=== PATIENT | female | born 1975 | race Caucasian/White ===

== ENCOUNTER 2019-09-29 17:52 | Observation (INO) | payer BC, SELFPAY ==
--- NOTE | ~2019-09-29 | XR_ITS ---
XR chest 1V portable 09/29/2019 18:17 Indication: Cough and shortness of breath. Right-sided chest pain. Procedure: AP portable chest Comparison: No prior studies for comparison. Findings: Patchy right perihilar and left basilar airspace disease, consistent with pneumonia. No ple ural effusion, edema or pneumothorax. Heart size is normal. Impression: 1: Patchy bilateral pneumonia. Reviewed, dictated and finalized at location A. TRICIAN'S ASSISTANT Impression: 1: Patchy bilateral pneumonia.
[2019-09-29 17:59] VITALS: BP 140/73; PULSE 119; RESP 21; TEMP 36.8; O2SAT 98
--- NOTE | 2019-09-29 18:06 | ECG_ITS ---
Measurements Intervals [place] Rate: 108 P: 4 DC: 133 QRS: 44 QRSD: 100 T: 6 QT: 339 QTc: 455 Interpretive Statements SINUS TACHYCARDIA MINIMAL Q WAVES- INFERIOR LEADS BORDERLINE ST-T WAVE ABNORMALITY- INFERIOR LEADS ABNORMAL ECG Electronically Signed On 09-30-2019 8:34:51 MECHANICAL INTEGRITY ENGINEER by Emeterio Child D.O.
--- NOTE | 2019-09-29 18:06 | ED.URI ---
HPI - URI/Sore Throat General Chief Complaint: Unspecified Stated Complaint: Sob Time Seen by Provider: 09/29/19 18:01 Source: patient Mode of arrival: ambulatory Limitations: no limitations History of Present Illness HPI Narrative: A 44 y/o female presents to the ED with c/o possible upper respiratory infection. Pt states that on 09/23/19 she started to have upper respiratory symptoms [place]. Last night the patient started to shiver and she noticed she had high blood pressure. Today the patient saw Dr. Harrison and she was tested for Influenza - which came back negative. At that appointment, Dr. Harrison advised the patient to be further evaluated at the ED. Pt reports slight productive cough, SOB, right sided ABD pain, rhinorrhea, and nausea, but denies vomiting. She is unsure if she had a fever. Pt adds that she is currently [address] Baez is her CRIMINALIST. MD elicited complaint: other (POssible upper respiratoy infection) Onset (ago): day(s) (6) Consistency: constant Associated symptoms: rhinorrhea, cough (Slight productive), shortness of breath, abdominal pain (Right sided), nausea and other (Shivering) Related Data Home Medications Medication Instructions Recorded Confirmed aspirin 81 mg tablet,delayed 81 mg PO DAILY 08/24/19 release cetirizine 10 mg tablet 10 mg PO DAILY 08/24/19 cyanocobalamin (vitamin B-12) 500 2,000 mcg PO DAILY each 08/24/19 mcg lozenges levothyroxine 200 mcg tablet 200 mcg PO DAILY 08/24/19 sertraline 50 mg tablet 50 mg PO DAILY 08/24/19 Allergies Allergy/AdvReac Type Severity Reaction Status Date / Time Cephalosporins Allergy Intermediate RASH Verified 09/29/19 16:09 Penicillins Allergy Mild Rash Verified 09/29/19 16:09 Review of Systems Review of Systems: All systems reviewed & are unremarkable except as noted in HPI and below Constitutional: Constitutional: Reports other (Shivering) ENT: Reports nasal discharge Respiratory: Respiratory: Reports cough (Slight productive) and Reports dyspnea Gastrointestinal: Gastrointestinal: Reports abdominal pain (Right sided), Reports nausea and Denies vomiting PMFSH Past Medical History Medical History (Updated 09/29/19 @ 20:01 by Renny Bhatti DO) Arthritis Bronchitis Chronic back pain Finger fracture GERD (gastroesophageal reflux disease) Head ache History of blood transfusion Hypothyroid IUP (intrauterine ), incidental Nose fracture Respiratory distress Spastic colon Tachycardia Surgical History Surgical History (Updated 09/29/19 @ 18:20 by Blessing Orozco) H/O local excision of skin lesion History of section History of tonsillectomy Social History Social History (Updated 09/29/19 @ 18:21 by Blessing Orozco) Smoking packs per day: 0.5 Smoking cigarettes per day: 10.0 Years smoked: 9 Smoking pack-years: 4.50 Smoking status: Former smoker Tobacco type: cigarettes Second hand tobacco smoke exposure: Yes Smoking end date: 08/09/10 Exam Narrative: Exam Narrative: APPEARANCE: No acute distress, nontoxic, resting in bed EYES: EOMI HEENT: Normocephalic, atraumatic, bilateral turbinates boggy, erythema no exudate posterior pharynx RESPIRATORY: No respiratory distress Clear to auscultation bilaterally with no rhonchi wheezing or rales. CARDIOVASCULAR: Regular rate and rhythm without murmurs rubs or gallops. ABDOMINAL: Soft, nontender, nondistended, no rebound or guarding MUSCULOSKELETAl: Moves all extremities. No clubbing, cyanosis or edema. NEURO: Awake and alert. Following commands, speech normal, no focal deficits SKIN:: Warm, dry. No rashes lesions or abrasions PSYCHIATRIC: Normal affect/mood, Course Course Emergency Course: Patient states she has a allergic reaction to cephalosporins. Had a rash as a child. Reviewed on up-to-date and will use clindamycin as substitution with continued azithromycin Discussed with patient and fam
[2019-09-29 18:45] LABS: Hematocrit 35.5 % (37.0-47.0); Hemoglobin 11.7 g/dL (12.0-15.0); Mean Corpuscular Hemoglobin 28.2 pg (26-34); Mean Corpuscular Volume 85.5 fl (80-100); Platelet Count Result 211 k/mm3 (150-375); Red Blood Count 4.15 M/mm3 (4.2-5.4); Red Cell Distribution Width 13.5 % (11.5-14.5); White Blood Count 24.7 K/mm3 (4.5-10.0)
[2019-09-29 18:54] LABS: Band Neutrophils Percent 2 % (0-6); Eosinophils Absolute Manual 0.24 K/mm3 (0.02-0.5); Eosinophils Percent Manual 1 % (0-4); Lymphocytes Absolute Manual 1.72 K/mm3 (1.1-4.5); Monocytes Absolute Manual 2.22 K/mm3 (0.1-0.90); Monocytes Percent Manual 9 % (3-9); Neutrophils Percent Manual 81 % (46-73); Total Cells Counted 100
[2019-09-29 18:55] LABS: Platelet Estimate Adequate (Adequate)
[2019-09-29 18:59] LABS: Lactic Acid Reflex 1.3 mmol/L (0.7-2.1)
[2019-09-29 19:00] LABS: Alanine Aminotransferase 15 U/L (4-35); Albumin Level 3.9 g/dL (3.5-5.1); Alkaline Phosphatase 93 U/L (38-126); Aspartate Amino Transferase 20 U/L (14-36); Bilirubin,Total 0.9 mg/dL (0.2-1.3); Blood Urea Nitrogen 3 mg/dL (7-17); Calcium 9.3 mg/dL (8.4-10.2); Carbon Dioxide 19 mmol/L (22-30); Chloride 99 mmol/L (98-107); Estimated CRCL calculation 140 ml/min; Estimated Glomerular Filt Rate > 60; Glucose 104 mg/dL (65-105); Potassium 3.4 mmol/L (3.4-5.0); Sodium 134 mmol/L (137-145)
[2019-09-29] MEDS: LACTATED RINGERS 1,000 ML 999 ML IV CONT (19:00)
[2019-09-29 19:13] LABS: Add Urine Microscopic? NO; Appearance Urine Clear (Clear); Bilirubin Urine Negative (Negative); Blood Urine Negative (Negative); Color Urine Yellow (Yellow); Glucose Urine UA Negative (Negative); Ketones Urine Negative (Negative); Leukocyte Esterase Ur Negative LEU/UL (Negative); Nitrate Urine Negative (Negative); Protein Urine Negative (Negative); Specific Grav Ur 1.005 (1.001-1.035); Urobilinogen Urine Negative mg/dL (<2.0)
[2019-09-29 19:16] VITALS: BP 124/59; PULSE 106; RESP 16; O2SAT 100
[2019-09-29] MEDS: CLINDAMYCIN 600 MG/NS 50 ML 600 MG/50 ML PIGGYBACK 100 MG IVPB (20:02)
[2019-09-29 20:03] VITALS: TEMP 36.4
[2019-09-29 20:15] VITALS: BP 116/66; PULSE 105; RESP 21; TEMP 37; O2SAT 100
--- NOTE | 2019-09-29 21:02 | ADMGEN ---
This patient, Anh Zurita, was admitted to 2 Medical Room 241-01@ 2029. Patient/family oriented to hospital policies and general routines including ID bracelet, bed and alarms, visiting hours, pain management, procedures, bathroom and other care routines, personal items, smoking policy, room service/diet, and visiting hours. Valuables list has been completed. Information on how to activate the Rapid Response Team has been discussed. Patient/Family are encouraged to report perceived risks to care and to ask questions if they do not understand what they are told or what they should do.
[2019-09-29 21:42] LABS: Glucose Point of Care 115 (65-105)
[2019-09-29 22:00] VITALS: BP 119/58; PULSE 96; RESP 16; TEMP 36.1; O2SAT 96; BMI 38.5
[2019-09-29] MEDS: LACTATED RINGERS 1,000 ML 100 ML IV CONT (23:27)
[2019-09-30] MEDS: CLINDAMYCIN 600 MG/NS 50 ML 600 MG/50 ML PIGGYBACK 100 MG IVPB ×2 (03:15→12:55)
--- NOTE | 2019-09-30 03:40 | PM.IMCN ---
Assessment and Plan Assessment and plan (1) Community acquired pneumonia: Code(s): J18.9 - Pneumonia, unspecified organism Status: Acute Assessment and Plan: She has been started on clindamycin and azithromycin which could be switched to oral formulation on discharge. Patient is responding well to antibiotic therapy and her leukocytosis has improved significantly. She does not have an oxygen requirement is not in any respiratory distress. On discharge the patient should complete a 7 day course of antibiotic therapy. (2) : Code(s): Z34.90 - Encounter for supervision of normal , unspecified, unspecified trimester Status: Acute Assessment and Plan: Management per primary service. (3) Gestational diabetes: Code(s): O24.419 - Gestational diabetes mellitus in , unspecified control Status: Acute Assessment and Plan: Management per primary service. HPI Data of Consult Consult date: 09/30/19 Requesting Physician: Jostin Bautista MD Primary Care Provider: Kalin Harrison MD Consult Narrative Narrative: Date and time of patient contact: 09/30/2019 at 3:40 a.m. Anh Zurita is a 44 year old female with a current medical history of allergic rhinitis, gestational diabetes with the current 30 week who presented to the ER with malaise, shortness of breath, cough and chills. The patient was seen at primary care physician's office and had a flu swab which was negative. She was directed to come to the ER for further evaluation where she had a chest x-ray which demonstrated patchy bilateral pneumonia. She was admitted in the setting. Hospitalist service has been consulted for management of pneumonia. The patient reports that she had traveled to [place] last week (09/23/2019). At the time she had had some fatigue, malaise and mental fog. Those symptoms improved when she left the [facility]. However on night she began having intractable chills and generally felt miserable all night. she has started having a minimal productive cough. She noticed on the day of presentation to the hospital that she had had some blood streaked sputum. She had been having some right-sided abdominal pain that has since resolved. She has been having some rhinorrhea with some mild postnasal drip with a mild sore throat. She was having some nausea which has since resolved. She has not been having any vomiting. Review of Systems Review of Systems: Narrative: Except as documented in the HPI, all other systems were reviewed and are negative. [facility] Past Medical History Medical History (Updated 09/30/19 @ 07:04 by Yashira Gaspar DO) Arthritis Bronchitis Chronic back pain Finger fracture GERD (gastroesophageal reflux disease) Gestational diabetes Head ache History of blood transfusion Hypothyroid IUP (intrauterine ), incidental Nose fracture Respiratory distress Spastic colon Tachycardia Surgical History Surgical History (Updated 09/29/19 @ 18:20 by Blessing Orozco) H/O local excision of skin lesion History of section History of tonsillectomy Family History Family History (Updated 09/29/19 @ 21:19 by Michelle Leal, HARIS) Father Diabetes mellitus Mother Brain tumor Social History Social History (Updated 09/30/19 @ 06:50 by Yashira Gaspar DO) Social History: Primary care physician: Dr. Harrison Smoking packs per day: 0.5 Smoking cigarettes per day: 10.0 Years smoked: 9 Smoking pack-years: 4.50 Smoking status: Former smoker Tobacco type: cigarettes Second hand tobacco smoke exposure: Yes Smoking end date: 08/09/10 Alcohol intake: never Alcohol use details: Prior to the patient had drank alcohol in moderation in on occasion. Substance use: never Substance use type: does not use Living arrangements: with family Additional living arrangements comm
[2019-09-30 05:57] LABS: Basophils Percent Auto 0.2 % (0.2-1.2); Eosinophils Absolute Auto 0.1 K/mm3 (0-0.3); Eosinophils Percent Auto 0.5 % (0-4.4); Hematocrit 31.4 % (37.0-47.0); Hemoglobin 10.4 g/dL (12.0-15.0); Immature Granulocyte Absolute 0.13 K/mm3 (0.00-0.031); Immature Granulocyte Percent A 0.8 % (0-0.5); Lymphocytes Absolute Auto 2.09 K/mm3 (0.9-3.2); Lymphocytes Percent Auto 12.7 % (18.3-44.2); Mean Corpuscular HGB Conc 33.1 g/dl (32-36); Mean Corpuscular Hemoglobin 28.7 pg (26-34); Mean Corpuscular Volume 86.5 fl (80-100); Monocytes Absolute Auto 1.2 K/mm3 (0.1-0.6); Monocytes Percent Auto 7.1 % (2.6-8.5); Neutrophils Percent Auto 78.7 % (45.5-73.1); Platelet Count Result 174 k/mm3 (150-375); Red Blood Count 3.63 M/mm3 (4.2-5.4); Red Cell Distribution Width 13.6 % (11.5-14.5); White Blood Count 16.5 K/mm3 (4.5-10.0)
[2019-09-30 06:00] VITALS: BP 114/67; PULSE 87; RESP 18; TEMP 36.2; O2SAT 98
[2019-09-30 06:10] LABS: Blood Urea Nitrogen 5 mg/dL (7-17); Calcium 8.3 mg/dL (8.4-10.2); Carbon Dioxide 21 mmol/L (22-30); Chloride 104 mmol/L (98-107); Estimated CRCL calculation 140 ml/min; Estimated Glomerular Filt Rate > 60; Glucose 105 mg/dL (65-105); Potassium 3.4 mmol/L (3.4-5.0); Sodium 134 mmol/L (137-145)
--- NOTE | 2019-09-30 07:44 | PM.SD ---
Same Day Admit/Disch: HPI History of Present Illness Chief complaint: Community-acquired pneumonia, pregnacy Narrative: Anh Zurita is a 44 year old female H&P: Anh Zurita is a 44 year old female with a current medical history of allergic rhinitis, gestational diabetes with the current 30 week who presented to the ER with malaise, shortness of breath, cough and chills. The patient was seen at primary care physician's office and had a flu swab which was negative. She was directed to come to the ER for further evaluation where she had a chest x-ray which demonstrated patchy bilateral pneumonia. She was admitted in the setting. Hospitalist service has been consulted for management of pneumonia. The patient reports that she had traveled to [place] last week (09/23/2019). At the time she had had some fatigue, malaise and mental fog. Those symptoms improved when she left the elevated elevation. However on night she began having intractable chills and generally felt miserable all night. she has started having a minimal productive cough. She noticed on the day of presentation to the hospital that she had had some blood streaked sputum. She had been having some right-sided abdominal pain that has since resolved. She has been having some rhinorrhea with some mild postnasal drip with a mild sore throat. She was having some nausea which has since resolved. She has not been having any vomiting. Patient will discharge 09/30/19 she will discharge with a 7 day clindamycin and azithromycin and with OB/ humanities division chair. Patient able to tolerate all meals , slept well and ambulate at baseline. Patient denies SOB, CP, palpitation, extremity numbness, lightheadness, dizziness, constipation, diarrhea, or chills or fever. Patient agree that they are ready for discharge and discharge plan. PENDING SALE TO [facility] Past Medical History Medical History (Updated 09/30/19 @ 07:04 by Yashira Gaspar DO) Arthritis Bronchitis Chronic back pain Finger fracture GERD (gastroesophageal reflux disease) Gestational diabetes Head ache History of blood transfusion Hypothyroid IUP (intrauterine ), incidental Nose fracture Respiratory distress Spastic colon Tachycardia Surgical History Surgical History (Updated 09/29/19 @ 18:20 by Blessing Orozco) H/O local excision of skin lesion History of section History of tonsillectomy Family History Family History (Updated 09/29/19 @ 21:19 by Michelle Leal RN) Father Diabetes mellitus Mother Brain tumor Social History Social History (Updated 09/30/19 @ 06:50 by Yashira Gaspar DO) Social History: Primary care physician: Dr. Harrison Smoking packs per day: 0.5 Smoking cigarettes per day: 10.0 Years smoked: 9 Smoking pack-years: 4.50 Smoking status: Former smoker Tobacco type: cigarettes Second hand tobacco smoke exposure: Yes Smoking end date: 08/09/10 Alcohol intake: never Alcohol use details: Prior to the patient had drank alcohol in moderation in on occasion. Substance use: never Substance use type: does not use Living arrangements: with family Additional living arrangements comments: The patient is . She has 2 step children and 2 biologic children. 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 Gender identity (if verbalized by the patient): Female Spiritual care concerns: No Agree to blood products: Yes Same Day Admit/Disch: Med Pre-admit Medications Home Medications Medication Instructions Recorded Confirmed Type aspirin 81 mg tablet,delayed 81 mg PO DAILY 08/24/19 09/29/19 History release cetirizine 10 mg tablet 10 mg PO QPM 08/24/19 09/29/19 History cyanocobalamin (vitamin B-12) 500 2,000 mcg PO DAILY each 08/24/19 09/29/19 History mcg lozenges levothyroxine 200 mcg tablet 200 mc
--- NOTE | 2019-09-30 10:22 | PM.IMHP ---
H&P: HPI History of Present Illness Chief complaint: Community-acquired pneumonia, pregnacy Narrative: Anh Zurita is a 44 year old female @ 30 weeks complicated by AMA, GERD, Hypothyroid and gestational Diabetes. care is with Dr. Baez. She presented to medicine doctor for coughing and chest pain yesterday sent to ER for evaluation. Patient reports sxs of fatigue and cough and chills began last week after traveling. Patient had a negative flu swab and CXR showed bilateral pneumonia. [facility] Past Medical History Medical History (Updated 09/30/19 @ 07:04 by Yashira Gaspar DO) Arthritis Bronchitis Chronic back pain Finger fracture GERD (gastroesophageal reflux disease) Gestational diabetes Head ache History of blood transfusion Hypothyroid IUP (intrauterine ), incidental Nose fracture Respiratory distress Spastic colon Tachycardia Surgical History Surgical History (Updated 09/29/19 @ 18:20 by Blessing Orozco) H/O local excision of skin lesion History of section History of tonsillectomy Family History Family History (Updated 09/29/19 @ 21:19 by Michelle Leal RN) Father Diabetes mellitus Mother Brain tumor Social History Social History (Updated 09/30/19 @ 06:50 by Yashira Gaspar DO) Social History: Primary care physician: Dr. Harrison Smoking packs per day: 0.5 Smoking cigarettes per day: 10.0 Years smoked: 9 Smoking pack-years: 4.50 Smoking status: Former smoker Tobacco type: cigarettes Second hand tobacco smoke exposure: Yes Smoking end date: 08/09/10 Alcohol intake: never Alcohol use details: Prior to the patient had drank alcohol in moderation in on occasion. Substance use: never Substance use type: does not use Living arrangements: with family Additional living arrangements comments: The patient is . She has 2 step children and 2 biologic children. 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 Gender identity (if verbalized by the patient): Female Spiritual care concerns: No Agree to blood products: Yes Meds Home Medications and Allergies Home Medications Medication Instructions Recorded Confirmed Type aspirin 81 mg tablet,delayed 81 mg PO DAILY 08/24/19 09/29/19 History release cetirizine 10 mg tablet 10 mg PO QPM 08/24/19 09/29/19 History cyanocobalamin (vitamin B-12) 500 2,000 mcg PO DAILY each 08/24/19 09/29/19 History mcg lozenges levothyroxine 200 mcg tablet 200 mcg PO DAILY 08/24/19 09/29/19 History sertraline 50 mg tablet 50 mg PO QPM 08/24/19 09/29/19 History insulin NPH isoph U-100 human 6 unit SUBCUT QPM 09/29/19 09/29/19 History [Humulin N NPH U-100 Insulin] Allergies Allergy/AdvReac Type Severity Reaction Status Date / Time Cephalosporins Allergy Intermediate RASH Verified 09/29/19 16:09 Penicillins Allergy Mild Rash Verified 09/29/19 16:09 Vital Signs Vital Signs - 24 hr 09/29/19 17:59 09/29/19 19:16 09/29/19 20:03 Temperature 36.8 C 36.4 C L Pulse Rate 119 H 106 H Respiratory Rate 21 H 16 Blood Pressure 140/73 124/59 L Pulse Oximetry 98 100 09/29/19 20:15 09/29/19 22:00 09/30/19 06:00 Temperature 37.0 C 36.1 C L 36.2 C L Pulse Rate 105 H 96 87 Respiratory Rate 21 H 16 18 Blood Pressure 116/66 119/58 L 114/67 Pulse Oximetry 100 96 98 Exam GI: Other: soft gravid nontender H&P: Results Labs Labs: Short CBC 09/29/19 09/30/19 Range/Units 18:34 05:37 WBC 24.7 H 16.5 H (4.5-10.0) K/mm3 Hgb 11.7 L 10.4 L (12.0-15.0) g/dL Hct 35.5 L 31.4 L (37.0-47.0) % Plt Count 211 174 (150-375) k/mm3 BMP 09/29/19 09/30/19 18:34 05:37 Sodium 134 L 134 L Potassium 3.4 3.4 Chloride 99 104 Carbon Dioxide 19 L 21 L BUN 3 L 5 L Creatinine 0.50 L 0.50 L Glucose 104 105 C
[2019-09-30 10:48] VITALS: BP 114/63; PULSE 87
== END 2019-09-30 14:20 | disposition home or self-care (01) ==
LOC: ANHED 18:25 → ANH2MED 20:01
PROVIDERS: Admitting Provider Obstetrics & Gynecology; Emergency Provider Emergency Medicine; PCP Family Medicine; Visit Provider Obstetrics & Gynecology
DX: O99.513 Diseases of the respiratory system complicating pregnancy, third trimester (principal); J18.9 Pneumonia, unspecified organism; J30.9 Allergic rhinitis, unspecified; O24.419 Gestational diabetes mellitus in pregnancy, unspecified control; O99.613 Diseases of the digestive system complicating pregnancy, third trimester; K21.9 Gastro-esophageal reflux disease without esophagitis; O99.283 Endocrine, nutritional and metabolic diseases complicating pregnancy, third trimester; E03.9 Hypothyroidism, unspecified; Z3A.30 30 weeks gestation of pregnancy; Z87.891 Personal history of nicotine dependence
CPT/HCPCS: 36415; 59025; 71045; 80048; 80053; 81003; 83605; 85025; 87040; 87804; 93005; 96361; 96365; 96367; 99285; G0378; J0131; J0456; J7120

== ENCOUNTER → 2019-10-26 13:26 | Outpatient (CLI) | payer BC, SELFPAY ==
--- NOTE | ~2019-10-26 | US_ITS ---
EXAMINATION: US OB follow up DATE: 10/26/2019 13:48 INDICATION: Large for gestational age during third trimester TECHNIQUE: Real-time ultrasound of the pelvis was performed. The interpreting radiologist was not pre sent for the study. COMPARISON: None. FINDINGS: There is a single living fetus in vertex presentation. The placenta is posterior. car diac activity and movement are noted. heart rate is 124 beats per minute (bpm). The amnio tic fluid index is 18.1 cm which is normal. The following biometric data were obtained: Biparietal diameter (BPD): 8.7 cm; head circumference (HC): 32.3 cm; abdominal circumference (AC): 32 .8 cm; femur length (FL): 6.8 cm. These measurements are concordant. Estimated weight is 2868 g +/- 430 g, which correlates with the 92nd percentile when 12/05/2019 is used as estimated date of delivery. As single measurements, these parameters are each equal to the following estimated gestational ages w ith ranges of +/- 2 standard deviations: BPD: 35 weeks 2 days ( 32 weeks 1 days - 38 weeks 2 days). HC: 36 weeks 4 days ( 34 weeks 0 days - 39 weeks 2 days). AC: 36 weeks 5 days ( 33 weeks 5 days - 39 weeks 5 days). FL: 35 weeks 2 days ( 32 weeks 2 days - 38 weeks 2 days). estimated gestational age based solely on measurements from this exam is 36 weeks 0 days +/- 2 weeks 4 days. IMPRESSION: 1. Single living fetus in vertex presentation. 2. Normal amniotic fluid index. 3. Estimated weight is 2868 g +/- 430 g, which correlates with the 92nd percentile when 12/05/19 20 is used as estimated date of delivery. Reviewed, dictated and finalized at location A. IMPRESSION: 1. Single living fetus in vertex presentation. 2. Normal amniotic fluid index. 3. Estimated weight is 2868 g +/- 430 g, which correlates with the 92nd p ercentile when 12/05/2019 is used as estimated date of delivery.
== END ==
PROVIDERS: Visit Provider Obstetrics & Gynecology
DX: O24.414 Gestational diabetes mellitus in pregnancy, insulin controlled (principal)
CPT/HCPCS: 76816

== ENCOUNTER 2019-11-17 09:02 | Outpatient (RCR) | payer BC, SELFPAY ==
[2019-11-17 09:36] VITALS: BP 132/81; PULSE 85
== END 2019-11-28 08:32 | disposition home or self-care (01) ==
LOC: ANHOBOP 09:02
PROVIDERS: Visit Provider Obstetrics & Gynecology Gynecology
DX: O09.523 Supervision of elderly multigravida, third trimester (principal); Z3A.37 37 weeks gestation of pregnancy
CPT/HCPCS: 59025

== ENCOUNTER 2019-11-27 10:56 | Outpatient (CLI) | payer BC, SELFPAY ==
[2019-11-27 11:16] LABS: Hematocrit 35.7 % (37.0-47.0); Hemoglobin 11.5 g/dL (12.0-15.0); Mean Corpuscular HGB Conc 32.2 g/dl (32-36); Mean Corpuscular Hemoglobin 27.6 pg (26-34); Mean Corpuscular Volume 85.6 fl (80-100); Mean Platelet Volume 10.4 fl (7.4-10.4); Platelet Count Result 180 k/mm3 (150-375); Red Blood Count 4.17 M/mm3 (4.2-5.4); Red Cell Distribution Width 14.6 % (11.5-14.5); White Blood Count 7.7 K/mm3 (4.5-10.0)
[2019-11-28 10:10] LABS: Rapid Plasma Reagin Non-Reactive (NonReactive)
== END 2019-11-27 10:57 | disposition home or self-care (01) ==
PROVIDERS: PCP Family Medicine; Visit Provider Obstetrics & Gynecology Gynecology
DX: Z01.818 Encounter for other preprocedural examination (principal)
CPT/HCPCS: 36415; 85027; 86592; 86900; 86901

== ENCOUNTER 2019-11-28 05:40 | Inpatient (IN) | payer BC, SELFPAY ==
[2019-11-28] VITALS (56 sets, daily range): BP systolic 93–155; BP diastolic 44–96; PULSE 60–101; RESP 12–20; TEMP 36.2–37.4; O2SAT 96–100; BMI 42.2
--- NOTE | 2019-11-28 05:55 | LDADM ---
This patient, Anh Zurita, was admitted to Labor/Delivery/Recovery 120 on 11/28/19 at 05:40. Plans for labor, pain management and were discussed with patient. Patient/family oriented to hospital policies and general routines including ID bracelet, bed and alarms, visiting hours, pain management, procedures, bathroom and other care routines, personal items, smoking policy, room service/diet and guest tray routines, security routines, and visiting hours. Patient/Family are encouraged to report perceived risks to care and to ask questions if they do not understand what they are told or what they should do. See OBIX for further documentation.
[2019-11-28] MEDS: LACTATED RINGERS 1,000 ML 125 ML IV CONT ×2 (06:25→07:07)
--- NOTE | 2019-11-28 06:43 | WPDANESEPPF ---
Anes - Initial Pre Proc Eval Procedure: Operation Date: 11/28/19 07:30 Proposed Procedures p Repeat Section - Mckenna Baez MD Date/Time: 11/28/19 06:43 Surgeon: Mckenna Baez MD Pre Op Diagnosis: History of Previous Patient Data Age: 44 Gender: F Height: 5 ft 4 in Weight: 111.5 kg Last Vital Signs Pulse 85 11/28/19 06:31 BP 130/76 11/28/19 06:31 Allergies Allergy/AdvReac Type Severity Reaction Status Date / Time Cephalosporins Allergy Intermediate RASH Verified 09/29/19 16:09 Penicillins Allergy Mild Rash Verified 09/29/19 16:09 Home Medications Medication Instructions Recorded Confirmed Type aspirin 81 mg tablet,delayed 81 mg PO DAILY 08/24/19 11/28/19 History release cetirizine 10 mg tablet 10 mg PO QPM 08/24/19 11/28/19 History cyanocobalamin (vitamin B-12) 500 2,000 mcg PO DAILY each 08/24/19 11/28/19 History mcg lozenges sertraline 50 mg tablet 50 mg PO QPM 08/24/19 11/28/19 History Humulin N NPH U-100 Insulin 8 unit SUBCUT QPM 09/29/19 11/28/19 History levothyroxine 200 mcg tablet 200 mcg PO DAILY #90 tablet 10/03/19 11/28/19 Rx Patient hx anesthesia problems: none Family hx anesthesia problems: none PMFSH Past Medical History Medical History Arthritis Bronchitis Chronic back pain Finger fracture GERD (gastroesophageal reflux disease) Gestational diabetes Head ache History of blood transfusion Hypothyroid IUP (intrauterine ), incidental Nose fracture Respiratory distress Spastic colon Tachycardia Surgical History Surgical History H/O local excision of skin lesion History of section History of tonsillectomy Family History Family History Father Diabetes mellitus Mother Brain tumor Social History Social History Social History: Primary care physician: Dr. Harrison Smoking packs per day: 0.5 Smoking cigarettes per day: 10.0 Years smoked: 9 Smoking pack-years: 4.50 Smoking status: Former smoker Tobacco type: cigarettes Second hand tobacco smoke exposure: No Smoking end date: 08/09/10 Alcohol intake: never Substance use: never Substance use type: does not use Additional living arrangements comments: The patient is . She has 2 step children and 2 biologic children. 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 Gender identity (if verbalized by the patient): Female Spiritual care concerns: No Agree to blood products: Yes Anes - Eval Final PreProcedure Day of Procedure 11/28/19 06:43 Patient weight: morbidly obese Heart: regular rate and rhythm Lungs: clear to auscultation Airway: Mallampati scale class 1 Neurological: alert and oriented Last oral intake: >/= 8 hours ASA classification: III Emergent: no Anesthetic plan: proceed Anesthesia type and monitoring: regional spinal and standard monitoring Informed Consent: The patient's anesthetic plan and its attendant risks and benefits were discussed with the patient/family/POA. Questions were solicited and answers provided to the satisfaction of the patient/family/POA.
[2019-11-28] MEDS: GENTAMICIN SULFATE INJ 385 MG in DEXTROSE 5% 100 ML 109.6 MG IVPB (06:46)
[2019-11-28 06:56] LABS: Glucose Point of Care 81 (65-105)
[2019-11-28] MEDS: CLINDAMYCIN 900 MG/NS 50 ML 900 MG/50 ML PIGGYBACK 50 MG IVPB (07:08)
--- NOTE | 2019-11-28 07:12 | PM.IMHP ---
H&P: HPI History of Present Illness Chief complaint: History of Previous Narrative: Anh Zurita is a 44 year old female A1 here at 39wks for repeat csection. Patient complicated by GDMA2 that has been well controlled. Patient had level 2 u/s for AMA that showed normal anatomy including ECHO. labs: O+; HBSAg -; HIV-; RPR -; GBS -. Review of Systems Constitutional: Constitutional: Reports no additional constitutional complaints Cardiovascular: Cardiovascular: Reports no additional cardiovascular complaints Respiratory: Respiratory: Reports no additional respiratory complaints Gastrointestinal: Gastrointestinal: Reports nausea Genitourinary: Genitourinary: Reports pelvic pain and Reports vaginal discharge Psychiatric: Psychiatric: Reports no additional psychiatric complaints PMFSH Past Medical History Medical History (Updated 11/28/19 @ 07:16 by Mckenna Baez MD) Arthritis Bronchitis Chronic back pain Finger fracture GERD (gastroesophageal reflux disease) Gestational diabetes Head ache History of blood transfusion Hypothyroid IUP (intrauterine ), incidental Nose fracture Respiratory distress Spastic colon Tachycardia Surgical History Surgical History (Updated 11/28/19 @ 07:17 by Mckenna Baez MD) H/O local excision of skin lesion History of section History of tonsillectomy Previous delivery, antepartum x 2 S/P laparoscopic cholecystectomy Family History Family History Father Diabetes mellitus Mother Brain tumor Social History Social History Social History: Primary care physician: Dr. Harrison Smoking packs per day: 0.5 Smoking cigarettes per day: 10.0 Years smoked: 9 Smoking pack-years: 4.50 Smoking status: Former smoker Tobacco type: cigarettes Second hand tobacco smoke exposure: No Smoking end date: 08/09/10 Alcohol intake: never Substance use: never Substance use type: does not use Additional living arrangements comments: The patient is . She has 2 step children and 2 biologic children. 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 Gender identity (if verbalized by the patient): Female Spiritual care concerns: No Agree to blood products: Yes Meds Home Medications and Allergies Home Medications Medication Instructions Recorded Confirmed Type aspirin 81 mg tablet,delayed 81 mg PO DAILY 08/24/19 11/28/19 History release cetirizine 10 mg tablet 10 mg PO QPM 08/24/19 11/28/19 History cyanocobalamin (vitamin B-12) 500 2,000 mcg PO DAILY each 08/24/19 11/28/19 History mcg lozenges sertraline 50 mg tablet 50 mg PO QPM 08/24/19 11/28/19 History Humulin N NPH U-100 Insulin 8 unit SUBCUT QPM 09/29/19 11/28/19 History levothyroxine 200 mcg tablet 200 mcg PO DAILY #90 tablet 10/03/19 11/28/19 Rx Allergies Allergy/AdvReac Type Severity Reaction Status Date / Time Cephalosporins Allergy Intermediate RASH Verified 09/29/19 16:09 Penicillins Allergy Mild Rash Verified 09/29/19 16:09 Vital Signs Vital Signs - 24 hr 11/28/19 06:21 11/28/19 06:31 Pulse Rate 82 85 Blood Pressure 139/83 130/76 Exam Const: General: no acute distress Resp: Auscultation: clear to auscultation bilaterally Cardio: Rate: regular rate Rhythm: regular rhythm GI: GI Palp: Yes Soft to palpation : Other: fundal height 45 cm Assessment and Plan Assessment and plan (1) Previous delivery, antepartum: Code(s): O34.219 - Maternal care for unspecified type scar from previous delivery Status: Acute Assessment and Plan: Proceed with repeat LTCS (2) 39 weeks gestation of : Code(s): Z3A.39 - 39 weeks gestation of S
--- NOTE | 2019-11-28 08:14 | PM.OP ---
Procedure Note - Brief Procedure Note - Brief Date of procedure: 11/28/19 Pre-op diagnosis: History of Previous GDMA2 IUP 39 wks Post-op diagnosis: same Procedure performed: Repeat LTCS Anesthesia: spinal Surgeon: Mckenna Baez MD Estimated blood loss (mL): 325 Drains: Yes (patricia) Packing: No Pathology: none sent Complications: No immediate complications Condition: stable Disposition: floor Findings: female infant weighing 9#12oz with 8/9 scores normal appearing tubes, ovaries, and uterus
--- NOTE | 2019-11-28 08:15 | PM.OBDSVD ---
DS: Diagnosis Admitting Diagnosis Admitting Diagnosis: Maternal care for unspecified type scar from previous delivery Discharge Diagnosis (1) delivery delivered: Code(s): O82 - Encounter for delivery without indication Status: Acute (2) Previous delivery, antepartum: Code(s): O34.219 - Maternal care for unspecified type scar from previous delivery Status: Acute (3) 39 weeks gestation of : Code(s): Z3A.39 - 39 weeks gestation of Status: Acute (4) GDM, class A2: Code(s): O24.419 - Gestational diabetes mellitus in , unspecified control Status: Acute OB - DS: Summary OB Procedures : NST and Ultrasound OB Procedures Intrapartum: low cervical, transverse OB Procedures: : None Peripartum Data Delivery Method: Section Procedures: Procedures Operation Date: 11/28/19 07:30 <No data on this case meets the specified criteria> complications: none Status at Discharge Functional status at discharge: independent ambulation Overall status at discharge: patient is progressing back to baseline Time Spent with Patient Time attestation: Total time spent providing and/or coordinating discharge services: DS: Data Data Completed and Pending Labs on day of discharge: Labs from last 24 hours 11/28/19 06:50 POC Capillary Glucose 81 Discharge Plan Discharge Attending physician on discharge: Mckenna Baez Consulting providers: Kai Corona Discharging Clinician: Mckenna Baez Anticipated Discharge Date/Time: 12/01/19 07:43 Patient Disposition: Home, Self-Care Activity: may shower, may drive after 2 weeks and pelvic rest Diet: regular Wound Care Instructions: incision open to air Discharge Instructions: Education: Mom and Baby Guide Given to: mother Follow-Up: Call your delivering provider's office for an appointment to be seen. Mom and baby should come to the [facility] for the follow-up appointment. Appointment Date/Time: December 02, 2019 at 11:00 am. What to expect at your follow-up visit: Physical Assessment Call [phone] if you are unable to keep your appointment time. BREAST CARE: 1. Wear a snug supportive bra. 2. For engorgement discomfort: Breast Feeding: A. Apply warm moist washcloths B. Express milk as needed to relieve engorgement C. Wear loose clothing 3. For sore nipples: A. Identify correct latch-on B. Apply warm moist washcloths before and after nursing C. Air dry nipples after nursing D. May apply Lansinoh cream to nipples ABDOMINAL INCISION: 1. Allow incision to air dry 2. Do NOT use lotions for powders on your incision 3. When showering, allow soap and water to run over the incision, but do not wash incision PERINEAL CARE: 1. Until bleeding stops, use your sandoval bottle after urinating 2. Change your pad frequently throughout the day 3. No tub baths until seen by your physician - You may shower ACTIVITY: 1. Rest as much as possible. 2. Do not exercise or lift anything heavier than your baby (such as laundry or other children.) 3. Avoid stairs or driving as much as possible. 4. Do not put anything into the vagina. No douching, tampons, or sexual activity until seen by physician. NOTIFY PHYSICIAN IF YOU HAVE ANY QUESTIONS OR IF ANY OF THE FOLLOWING SYMPTOMS OCCUR: 1. If your incision becomes red, swollen, or more painful than what you have experienced in the hospital. 2. If your vaginal bleeding becomes foul smelling. 3. If your vaginal bleeding becomes more heavy than a period or if your bleeding changes from pink to bright red. However, you may pass an occasional walnut-sized clot once or twice for the first week . 4. If you experience a sharp, shooting pain in you calves. 5. If you discover
--- NOTE | 2019-11-28 08:50 | OP_ITS ---
DATE OF PROCEDURE: 11/28/2019 PREOPERATIVE DIAGNOSES: 1. Previous section x2. 2. Intrauterine at 39 weeks. 3. Gestational diabetes, insulin requiring. POSTOPERATIVE DIAGNOSES: 1. Previous section x2. 2. Intrauterine at 39 weeks. 3. Gestational diabetes, insulin requiring. PROCEDURE: Repeat low-transverse section. SURGEON: Mckenna Baez M.D. ANESTHESIA: Spinal. FINDINGS: Female , 9 pounds 12 ounces with Apgars of 8 at 1 minute, 9 at 5 minutes. Normal-appearing tubes, ovaries, and uterus. ESTIMATED BLOOD LOSS: 325 cc. PATHOLOGY: None. DESCRIPTION OF PROCEDURE: The patient was taken to the operating room, placed under spinal anesthesia in the dorsal supine position with a leftward tilt. Once anesthesia was deemed adequate, she was prepped and draped in the usual sterile fashion. A Pfannenstiel skin incision was made with a scalpel and carried down to the underlying layer of fascia. Fascia was nicked in the midline and extended laterally using Tello scissors. Ochsner were used to tent the fascia, which was then dissected off using sharp and blunt dissection. The rectus muscles were in the midline. The perineum was grasped and entered with Pean. The incision was extended with blunt traction. The bladder blade was placed. The vesicouterine perineum was tented, entered with Metzenbaum, and extended laterally. Bladder flap was created digitally. The lower uterine segment was incised in a transverse fashion with a scalpel and extended laterally. The membranes were ruptured. Clear fluid was noted. The infant's head was delivered through the incision while the horticultural nursery assistant applied fundal pressure. The was fully delivered. The cord was clamped and cut and the handed to the waiting OB nurse. The placenta was removed using manual traction. The uterus was cleared of all clots and debris. The uterus was exteriorized. The uterine incision was closed using 0 Monocryl in a running locked fashion. Same suture was used to imbricate and obtain hemostasis in the left lower portion of the incision. Once hemostasis was deemed adequate, the gutter and cul-de-sac were irrigated. The uterus was returned to the abdomen. The fascia was then closed using 0 Vicryl in a running fashion. Subcutaneous tissues were irrigated and made hemostatic using Bovie cautery. Skin was closed using 4-0 Vicryl in a subcuticular fashion. DermaFlex was placed over the incision. D I MT: Dayana
[2019-11-28] MEDS: OXYTOCIN 30 UNITS/NS 500 ML 30 UNITS/500 ML BAG 125 UNITS IV CONT (09:00)
--- NOTE | 2019-11-28 14:33 | OBPPTRN ---
Patient transferred to post room #279 via stretcher. Support person present. Oriented to unit, room, information board, rooming in, admission packet and security measures. Patient verbalizes understanding.
[2019-11-28] MEDS: DOCUSATE SODIUM 100 MG CAPSULE PO (16:29)
[2019-11-28] MEDS: SERTRALINE HCL 50 MG TABLET PO (19:44)
[2019-11-28] MEDS: IBUPROFEN 600 MG TABLET PO (22:49)
[2019-11-29] MEDS: SIMETHICONE 80 MG TAB.CHEW PO ×7 (02:17→22:04)
[2019-11-29 04:15] VITALS: BP 128/58; PULSE 81; RESP 16; TEMP 36.5; O2SAT 100
[2019-11-29] MEDS: IBUPROFEN 600 MG TABLET PO ×3 (04:29→19:24)
[2019-11-29 05:15] LABS: Basophils Percent Auto 0.6 % (0.2-1.2); Eosinophils Absolute Auto 0.1 K/mm3 (0-0.3); Eosinophils Percent Auto 1.7 % (0-4.4); Hematocrit 28.7 % (37.0-47.0); Hemoglobin 9.1 g/dL (12.0-15.0); Immature Granulocyte Absolute 0.02 K/mm3 (0.00-0.031); Immature Granulocyte Percent A 0.3 % (0-0.5); Lymphocytes Absolute Auto 1.66 K/mm3 (0.9-3.2); Lymphocytes Percent Auto 22.9 % (18.3-44.2); Mean Corpuscular HGB Conc 31.7 g/dl (32-36); Mean Corpuscular Hemoglobin 27.9 pg (26-34); Mean Platelet Volume 10.8 fl (7.4-10.4); Monocytes Absolute Auto 0.8 K/mm3 (0.1-0.6); Monocytes Percent Auto 10.7 % (2.6-8.5); Neutrophils Absolute Auto 4.6 K/mm3 (1.3-6.7); Neutrophils Percent Auto 63.8 % (45.5-73.1); Platelet Count Result 162 k/mm3 (150-375); Red Blood Count 3.26 M/mm3 (4.2-5.4); Red Cell Distribution Width 14.6 % (11.5-14.5); White Blood Count 7.3 K/mm3 (4.5-10.0)
--- NOTE | 2019-11-29 07:00 | PC.NURSE ---
PT introductions made and plan of care discussed per post op csection, pain management, breast feeding, daily care activities. PT verbalized understanding of such care.
[2019-11-29 07:45] VITALS: BP 136/77; PULSE 79; RESP 18; TEMP 36.6; O2SAT 98
[2019-11-29 09:30] VITALS: PULSE 79; RESP 18; O2SAT 98
[2019-11-29] MEDS: POLYSACCHARIDE IRON COMPLEX 150 MG CAPSULE PO ×2 (09:42→16:26)
[2019-11-29] MEDS: DOCUSATE SODIUM 100 MG CAPSULE PO ×2 (09:44→16:25)
[2019-11-29] MEDS: MULTIVIT/MIN/PREN/FOL AC/IRON TABLET 1 TAB PO (09:44)
[2019-11-29] MEDS: LEVOTHYROXINE SODIUM 100 MCG TABLET 200 MCG PO (09:44)
[2019-11-29] MEDS: LANOLIN (LANSINOH) 7.5 GM CREAM 1 APPLIC TOPICAL (09:44)
--- NOTE | 2019-11-29 09:51 | PM.OBPNVD ---
OB - PN: Subj Subjective Date/time seen: 11/29/19 09:51 S: doing well no complaints OB - PN: Obj Data Labs CBC & Chem 7: 11/29/19 04:15 Labs: Laboratory Results - last 24 hr 11/29/19 04:15 WBC 7.3 RBC 3.26 L Hgb 9.1 L Hct 28.7 L MCV 88.0 MCH 27.9 MCHC 31.7 L RDW 14.6 H Plt Count 162 MPV 10.8 H Immature Gran % (Auto) 0.3 Neut % (Auto) 63.8 Lymph % (Auto) 22.9 [place] % (Auto) 10.7 H Eos % (Auto) 1.7 Baso % (Auto) 0.6 Lymph # (Auto) 1.66 [place] # (Auto) 0.8 H Eos # (Auto) 0.1 Baso # (Auto) 0.0 Abs Immat Gran (auto) 0.02 Absolute Neuts (auto) 4.6 Absolute Nucleated RBC 0.0 Nucleated RBC % 0.0 OB - PN A/P Assessment and Plan (1) Previous delivery, antepartum: Code(s): O34.219 - Maternal care for unspecified type scar from previous delivery Status: Acute Assessment and Plan: doing well pain controlled. mild anemia continue pnv and iron. Time Spent With Patient Time: Total time spent is greater than 50% in coordination of care (as documented) at patient's floor/unit and/or counseling patient:
[2019-11-29 13:44] VITALS: TEMP 36.6
--- NOTE | 2019-11-29 13:55 | WPDANLDNPN2 ---
Anes-Prog Note L&D-Neuraxial Date/Time: 11/29/19 13:55 Neuraxial medications: intrathecal PF morphine Opiod-related complaints: none Patient feedback: Patient satisfied with post-operative pain management.
--- NOTE | 2019-11-29 13:55 | WPDANLDPN2 ---
Anes-Prog Note L&D Date/Time: 11/29/19 13:55 Comfortable throughout: section Neuraxial method: spinal Epidural/Spinal procedure site: clean & non-tender Neuro status: Neuro function grossly intact. Cardiovascular status: normal Respiratory status: normal Airway patency: baseline Mental status: baseline Post-Op hydration status: normal Vital Signs: Last Vital Signs Temp 36.6 C 11/29/19 07:45 Pulse 79 11/29/19 09:30 Resp 18 11/29/19 09:30 BP 136/77 11/29/19 07:45 Pulse Ox 98 11/29/19 09:30 I/O: Intake & Output 11/28/19 11/29/19 11/29/19 23:59 07:59 15:59 Intake Total 2200 1000 Output Total 3000 2100 Balance -800 -1100 Post-procedural complaints: none Patient feedback: Patient satisfied with anesthetic care.
--- NOTE | 2019-11-29 14:15 | PC.NURSE ---
Upon entering mother has latched to breast, has a slightly shallow latch. Mother reports infant is fussy and has some nipple tenderness. Discussed how a deep latch may assist with less tenderness and may increase intake. Mother reports she does not like to use the cross cradle and the cradle is more comfortable to her. Reviewed positioning/alignment, holding breast and asymmetrical latch on. Discussed rational for each. nursed eagerly, with steady draws and occasional swallowing noted. Reviewed signs of a correct latch, effective nursing and suck swallow ratio. Nipple care reviewed. Reviewed feeding cues, frequencies, duration of feedings, feeding elimination flow sheet, and signs of adequate intake. Demonstrated stimulation techniques to wake for feeding.Instructed mother to call out for RN assistance if she is unable to latch infant for feeding or she has discomfort with nursing. Instructed feeding should be initiated three hours from start of last feeding or if feeding cues are noted before. Mother voiced understanding of information shared.
[2019-11-29] MEDS: SERTRALINE HCL 50 MG TABLET PO (16:26)
[2019-11-29 18:40] VITALS: BP 114/79; PULSE 98; RESP 16; TEMP 36.9
[2019-11-30] MEDS: SIMETHICONE 80 MG TAB.CHEW PO ×8 (01:12→23:28)
[2019-11-30] MEDS: IBUPROFEN 600 MG TABLET PO ×4 (01:13→20:12)
[2019-11-30 07:30] VITALS: BP 113/76; PULSE 86; RESP 18; TEMP 37.2; O2SAT 98
[2019-11-30] MEDS: MULTIVIT/MIN/PREN/FOL AC/IRON TABLET 1 TAB PO (07:40)
[2019-11-30] MEDS: LEVOTHYROXINE SODIUM 100 MCG TABLET 200 MCG PO (07:40)
[2019-11-30] MEDS: POLYSACCHARIDE IRON COMPLEX 150 MG CAPSULE PO ×2 (07:40→17:00)
[2019-11-30] MEDS: DOCUSATE SODIUM 100 MG CAPSULE PO ×2 (07:40→17:01)
--- NOTE | 2019-11-30 07:42 | P.PNOB_ITS ---
OB - PN: Subj Subjective Date/time seen: 11/30/19 07:42 Patient comments: no complaints and pain well controlled baby status: doing well [place] feeding status: exclusively breast feeding OB - PN: Obj Data Labs CBC & Chem 7: 11/29/19 04:15 OB - PN A/P Plan day: 2 Plan: routine care Time Spent With Patient Time: Total time spent is greater than 50% in coordination of care (as documented) at patient's floor/unit and/or counseling patient: Exam GI: Other: Inc c/d/i : Bimanual exam- vagina & uterus: other (Uterus firm, nt @U)
--- NOTE | 2019-11-30 09:10 | PC.NURSE ---
Mother reports she continues with tenderness with latching and reports infant is fussy between feedings. Mother states she feels her breasts are firmer to day and feels her milk may be transitioning. Discussed the importance of a deep latch for mother's comfort and increased intake. Mother has at breast in a cradle position with a shallow latched. Suggested mother hold breast and adjust latch more deeply. Mother states does not like that position and will release latch freq. and is comfortable as is. Mother is is feeding as required and waking to feed if needed. Infant is currently meeting outcomes for weight, output, jaundice and feeding frequencies.
--- NOTE | 2019-11-30 14:15 | PC.NURSE ---
PT introductions made and plan of care discussed per post op c section, pain management, breast feeding, daily care activities. PT verbalized understanding of such care.
[2019-11-30] MEDS: SERTRALINE HCL 50 MG TABLET PO (17:00)
[2019-11-30 20:13] VITALS: BP 137/85; PULSE 105; RESP 16; TEMP 36.6
[2019-12-01] MEDS: SIMETHICONE 80 MG TAB.CHEW PO ×3 (03:04→12:36)
[2019-12-01] MEDS: IBUPROFEN 600 MG TABLET PO ×2 (03:04→09:31)
[2019-12-01 07:40] VITALS: BP 130/78; PULSE 86; RESP 18; TEMP 36.8; O2SAT 98
[2019-12-01] MEDS: LEVOTHYROXINE SODIUM 100 MCG TABLET 200 MCG PO (08:10)
[2019-12-01] MEDS: POLYSACCHARIDE IRON COMPLEX 150 MG CAPSULE PO (09:30)
[2019-12-01] MEDS: MULTIVIT/MIN/PREN/FOL AC/IRON TABLET 1 TAB PO (09:30)
--- NOTE | 2019-12-01 09:30 | PC.NURSE ---
Mother is able to independently latch infant with appropriate positioning/alignment. Mother has a small blister to right nipple from incorrect latch during the night. Reviewed nipple care. She denies any nipple discomfort, is feeding as required and waking infant to feed if needed. has had at least 8 effective feedings in the past 24 hours, and is currently meeting outcomes for weight, output, jaundice and feeding frequencies. Mother states she feels confident to continue effective at home. Reviewed transition to breast milk, signs of adequate intake, and engorgement/relief. Instructed to call ICP if intake/output less than required. Reviewed regular medications mother is taking. Information provided per Esthela. Reviewed community resources on the [facility] website and in the Mom/Baby guide. Information on outpatient services provided. Mother has no further questions at this time.
[2019-12-01] MEDS: DOCUSATE SODIUM 100 MG CAPSULE PO (09:32)
[2019-12-01] MEDS: MEASLES,MUMPS,RUBELLA VACCINE 0.5 ML VIAL (09:32)
--- NOTE | 2019-12-01 12:06 | PM.OBPNVD ---
OB - PN: Subj Subjective Date/time seen: 12/01/19 12:06 no complaints desires home OB - PN: Obj Data Labs CBC & Chem 7: 11/29/19 04:15 OB - PN A/P Assessment and Plan (1) Previous delivery, antepartum: Code(s): O34.219 - Maternal care for unspecified type scar from previous delivery Status: Acute Assessment and Plan: d/c home f/u 1 week Time Spent With Patient Time: Total time spent is greater than 50% in coordination of care (as documented) at patient's floor/unit and/or counseling patient:
[2019-12-02 11:13] VITALS: BP 134/79; PULSE 94; RESP 20; TEMP 37.1; O2SAT 99
== END 2019-12-01 14:15 | disposition home or self-care (01) | DRG 788 ==
LOC: ANHLDR 05:49 → ANHOB2 11-30 07:43 → ANHLDR 12-04 12:35 → ANHOB2 12-04 12:35
PROVIDERS: Admitting Provider Obstetrics & Gynecology Gynecology; PCP Family Medicine; Visit Provider Obstetrics & Gynecology
PROC: 10D00Z1 Extraction of Products of Conception, Low, Open Approach (ICD-10-PCS; CPT 59514; principal; 2019-11-28 07:30)
DX: O34.211 Maternal care for low transverse scar from previous cesarean delivery (principal); Z37.0 Single live birth; Z3A.39 39 weeks gestation of pregnancy; O24.424 Gestational diabetes mellitus in childbirth, insulin controlled; O99.89 Other specified diseases and conditions complicating pregnancy, childbirth and the puerperium; M19.90 Unspecified osteoarthritis, unspecified site; O99.62 Diseases of the digestive system complicating childbirth; K21.9 Gastro-esophageal reflux disease without esophagitis; O99.284 Endocrine, nutritional and metabolic diseases complicating childbirth; E03.9 Hypothyroidism, unspecified; O99.214 Obesity complicating childbirth; E66.01 Morbid (severe) obesity due to excess calories; O99.344 Other mental disorders complicating childbirth; F41.9 Anxiety disorder, unspecified
CPT/HCPCS: 36415; 85025; 90710; A9270; J0131; J1200; J1580; J2274; J2405; J2590; J7120

== ENCOUNTER 2020-11-13 10:18 | Outpatient (CLI) | payer BC, SELFPAY ==
[2020-11-13 12:50] LABS: Free T4 Free Thyroxine 0.95 ng/mL (0.78-2.19)
[2020-11-13 13:05] LABS: Total Triiodothyronine (T3) 0.98 NG/ML (0.97-1.69)
== END 2020-11-13 10:19 | disposition home or self-care (01) ==
LOC: ANHWCLAB 10:20
PROVIDERS: PCP Family Medicine; Referring Provider Internal Medicine Endocrinology, Diabetes & Metabolism; Visit Provider Internal Medicine Endocrinology, Diabetes & Metabolism
DX: E03.9 Hypothyroidism, unspecified (principal)
CPT/HCPCS: 36415; 84439; 84443; 84480

== ENCOUNTER 2021-03-17 10:24 | Outpatient (CLI) | payer BC, SELFPAY ==
[2021-03-17 10:53] LABS: Glucose 104 mg/dL (65-110)
[2021-03-17 12:11] LABS: Total Triiodothyronine (T3) 0.94 NG/ML (0.97-1.69)
== END 2021-03-17 10:25 | disposition home or self-care (01) ==
LOC: ANHLAB 10:26
PROVIDERS: PCP Family Medicine; Visit Provider Internal Medicine Endocrinology, Diabetes & Metabolism
DX: O24.419 Gestational diabetes mellitus in pregnancy, unspecified control (principal); E03.9 Hypothyroidism, unspecified; Z3A.00 Weeks of gestation of pregnancy not specified
CPT/HCPCS: 36415; 82947; 83525; 84439; 84443; 84480

== ENCOUNTER 2021-12-01 10:04 | Outpatient (CLI) | payer BC, SELFPAY ==
[2021-12-01 16:56] LABS: Free T4 Free Thyroxine 1.96 ng/mL (0.78-2.19)
[2021-12-01 17:10] LABS: Thyroid Stimulating Hormone 0.116 uIU/mL (0.465-4.680)
== END 2021-12-01 10:05 | disposition home or self-care (01) ==
PROVIDERS: Referring Provider Internal Medicine Endocrinology, Diabetes & Metabolism; Visit Provider Internal Medicine Endocrinology, Diabetes & Metabolism
DX: E03.9 Hypothyroidism, unspecified (principal)
CPT/HCPCS: 36415; 84439; 84443

== ENCOUNTER 2021-12-10 14:26 | Outpatient (CLI) | payer BC, SELFPAY ==
--- NOTE | ~2021-12-10 | MM_ITS ---
EXAMINATION: MM screening toya BI w yan HISTORY: Screening mammogram TECHNIQUE: Craniocaudal and mediolateral oblique 3-D tomosynthesis images were obtained and synthetic 2-D images were generated. CAD analysis was submitted and interpreted. COMPARISON: 12/20/2017 diagnostic left mammogram and complete left breast ultrasound examination 07/08/2017 bilateral screening mammogram BREAST PARENCHYMAL COMPOSITION: The breasts are heterogeneously dense, which may obscure small masses . FINDINGS: There is no evidence of suspicious mass, calcification, or architectural distortion to sugg est malignancy in either breast. There has been no suspicious interval change. IMPRESSION: 1. No mammographic evidence of malignancy. 2. Recommend routine screening mammography in one year. BI-RADS Category 1: Negative Reviewed, dictated and finalized at location D.
== END 2021-12-10 14:27 | disposition home or self-care (01) ==
LOC: ANHIMG 14:28
PROVIDERS: PCP Family Medicine; Visit Provider Nurse Practitioner
DX: Z12.31 Encounter for screening mammogram for malignant neoplasm of breast (principal)
CPT/HCPCS: 77063; 77067

== ENCOUNTER 2022-11-23 00:04 | Day surgery (SDC) | payer BC, SELFPAY ==
[2022-11-13 10:08] VITALS: BMI 33.7
--- NOTE | 2022-11-22 10:27 | PM.HPGS ---
History of Present Illness History of Present Illness Consent: Risks, benefits, and alternatives have been discussed and questions answered. Patient agrees to proceed with procedure. Chief complaint: neoplasm screening Narrative: Anh Zurita is a 47 year old female referred ofr colon cancer screening Review of Systems Review of Systems: All systems reviewed & are unremarkable except as noted in HPI and below PMFSH Past Medical History Medical History 39 weeks gestation of Arthritis Bronchitis delivery delivered Chronic back pain Community acquired pneumonia Finger fracture GDM, class A2 GERD (gastroesophageal reflux disease) Gestational diabetes Head ache History of blood transfusion Hypothyroid IUP (intrauterine ), incidental Nose fracture Respiratory distress Spastic colon Tachycardia Surgical History Surgical History H/O local excision of skin lesion History of section History of tonsillectomy Previous delivery, antepartum x 2 S/P laparoscopic cholecystectomy Family History Family History Father Diabetes mellitus Mother Brain tumor Mother Family history of thyroid disease Family history of migraine headaches Family history of malignant neoplasm of brain Grandparent Family history of osteoporosis Cerebrovascular accident Father Family history of diabetes mellitus in first degree relative Other Family history of heart disease in male family member before age 55 Social History Social History Social History: Primary care physician: Dr. Harirson Smoking packs per day: 0.5 Smoking cigarettes per day: 10.0 Years smoked: 15 Smoking pack-years: 7.50 Smoking status: Former smoker Tobacco type: cigarettes Second hand tobacco smoke exposure: No Smoking end date: 08/09/10 Alcohol intake: never Alcohol use details: Prior to the patient had drank alcohol in moderation in on occasion. Substance use: never Substance use type: does not use Living arrangements: with family Additional living arrangements comments: The patient is . She has 2 step children and 2 biologic children. 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 Gender identity (if verbalized by the patient): Female Spiritual care concerns: No Agree to blood products: Yes Meds Home Medications and Allergies Home Medications Medication Instructions Recorded Confirmed Type prenat.vits,ronnie,ymw-vrvw-kzbcz 1 tablet PO DAILY 11/13/20 11/13/22 History vitamin B complex 1 cap PO DAILY 11/13/20 11/13/22 History metformin 1,000 mg tablet 1,000 mg PO BID 06/30/21 11/13/22 History cetirizine 10 mg capsule (Zyrtec) 10 mg PO DAILY 12/03/21 11/13/22 History cholecalciferol (vitamin D3) 1,250 1,250 mcg PO 2XW 12/03/21 11/13/22 History mcg (50,000 unit) capsule cyanocobalamin (vitamin B-12) 500 2,500 mcg PO DAILY 12/03/21 11/13/22 History mcg lozenges liothyronine 5 mcg tablet (Cytomel) 5 mcg PO DAILY #90 tabs 06/01/22 11/13/22 Rx sertraline 50 mg tablet 75 mg PO QPM #135 tabs 06/08/22 11/13/22 Rx semaglutide (weight loss) 0.5 0.5 mg (0.5 mL) subcut WEEKLY #2 mL 09/07/22 11/13/22 Rx mg/0.5 mL subcutaneous pen injector (Wegovy) semaglutide (weight loss) 1 mg/0.5 1 mg (0.5 mL) subcut Q7D #2 mL 10/29/22 11/13/22 Rx mL subcutaneous pen injector (Wegovy) semaglutide (weight loss) 1.7 1.7 mg (0.75 mL) subcut WEEKLY #3 10/29/22 11/13/22 Rx mg/0.75 mL subcutaneous pen mL injector (Wegovy) semaglutide (weight loss) 2.4 2.4 mg (0.75 mL) subcut WEEKLY 90 10/29/22 11/13/22 Rx mg/0.75 mL subcutaneo
[2022-11-23 09:06] VITALS: BP 118/73; PULSE 85; RESP 18; TEMP 36.3; O2SAT 100
[2022-11-23] MEDS: LACTATED RINGERS 1,000 ML 150 ML IV CONT (09:23)
[2022-11-23 09:24] LABS: Glucose Point of Care 88 mg/dl (65-105)
--- NOTE | 2022-11-23 09:25 | WPDANESEPPF ---
Anes - Initial Pre Proc Eval Procedure: Operation Date: 11/23/22 10:15 Proposed Procedures p Screening Colonoscopy - Cody Fernández MD Date/Time: 11/23/22 09:25 Surgeon: Cody Fernández MD Pre Op Diagnosis: neoplasm screening Patient Data Age: 47 Gender: F Height: 1.63 m Weight: 92.7 kg Allergies Allergy/AdvReac Type Severity Reaction Status Date / Time Cephalosporins Allergy Intermediate RASH Verified 11/23/22 09:06 Penicillins Allergy Mild Rash Verified 11/23/22 09:06 amoxicillin Allergy Unknown Unknown Verified 11/23/22 09:06 cefadroxil Allergy Unknown Rash Verified 11/23/22 09:06 Home Medications Medication Instructions Recorded Confirmed Type prenat.vits,ronnie,[id number] 1 tablet PO DAILY 11/13/20 11/13/22 History vitamin B complex 1 cap PO DAILY 11/13/20 11/13/22 History metformin 1,000 mg tablet 1,000 mg PO BID 06/30/21 11/13/22 History cetirizine 10 mg capsule (Zyrtec) 10 mg PO DAILY 12/03/21 11/13/22 History cholecalciferol (vitamin D3) 1,250 1,250 mcg PO 2XW 12/03/21 11/13/22 History mcg (50,000 unit) capsule cyanocobalamin (vitamin B-12) 500 2,500 mcg PO DAILY 12/03/21 11/13/22 History mcg lozenges liothyronine 5 mcg tablet (Cytomel) 5 mcg PO DAILY #90 tabs 06/01/22 11/13/22 Rx sertraline 50 mg tablet 75 mg PO QPM #135 tabs 06/08/22 11/13/22 Rx semaglutide (weight loss) 0.5 0.5 mg (0.5 mL) subcut WEEKLY #2 mL 09/07/22 11/13/22 Rx mg/0.5 mL subcutaneous pen injector (Wegovy) semaglutide (weight loss) 1 mg/0.5 1 mg (0.5 mL) subcut Q7D #2 mL 10/29/22 11/13/22 Rx mL subcutaneous pen injector (Wegovy) semaglutide (weight loss) 1.7 1.7 mg (0.75 mL) subcut WEEKLY #3 10/29/22 11/13/22 Rx mg/0.75 mL subcutaneous pen mL injector (Wegovy) semaglutide (weight loss) 2.4 2.4 mg (0.75 mL) subcut WEEKLY 90 10/29/22 11/13/22 Rx mg/0.75 mL subcutaneous pen days #9.75 mL injector (Wegovy) levothyroxine 137 mcg tablet 137 mcg PO DAILY 90 days #90 tabs 11/02/22 11/13/22 Rx Laboratory Tests 11/23/22 09:21 POC Capillary Glucose 88 mg/dl mg/dl (65-105) Patient hx anesthesia problems: none Family hx anesthesia problems: none Results Review: All pre-operative results and documents have been reviewed as part of the pre-operative evaluation. [facility] Past Medical History Medical History 39 weeks gestation of Arthritis Bronchitis delivery delivered Chronic back pain Community acquired pneumonia Finger fracture GDM, class A2 GERD (gastroesophageal reflux disease) Gestational diabetes Head ache History of blood transfusion Hypothyroid IUP (intrauterine ), incidental Nose fracture Respiratory distress Spastic colon Tachycardia Surgical History Surgical History H/O local excision of skin lesion History of section History of tonsillectomy Previous delivery, antepartum x 2 S/P laparoscopic cholecystectomy Family History Family History Father Diabetes mellitus Mother Brain tumor Mother Family history of thyroid disease Family history of migraine headaches Family history of malignant neoplasm of brain Grandparent Family history of osteoporosis Cerebrovascular accident Father Family history of diabetes mellitus in first degree relative Other Family history of heart disease in male family member before age 55 Social History Social History Social History: Primary care physician: Dr. Harrison Smoking packs per day: 0.5 Smoking cigarettes per day: 10.0 Years smoked: 15 Smoking pack-years: 7.50 Smoking status: Former smoker Tobacco type: cigarettes Second hand tobacco smoke exposure: No Smoking end date: 08/09/10 Alcohol intake: never Alcoho
[2022-11-23 10:07] VITALS: BP 104/63; PULSE 86; RESP 17; O2SAT 100
[2022-11-23 10:17] VITALS: BP 111/66; PULSE 85; RESP 20; O2SAT 100
[2022-11-23 10:27] VITALS: BP 114/74; PULSE 80; RESP 15; O2SAT 100
== END 2022-11-23 10:36 | disposition home or self-care (01) ==
PROVIDERS: PCP Family Medicine; Visit Provider Internal Medicine Gastroenterology
PROC: 0DJD8ZZ Inspection of Lower Intestinal Tract, Via Natural or Artificial Opening Endoscopic (ICD-10-PCS; CPT 45378; principal; 2022-11-23 10:15)
DX: Z12.11 Encounter for screening for malignant neoplasm of colon (principal); E03.9 Hypothyroidism, unspecified; Z87.891 Personal history of nicotine dependence; E66.9 Obesity, unspecified; Z68.35 Body mass index [BMI] 35.0-35.9, adult; Z79.899 Other long term (current) drug therapy
CPT/HCPCS: 45378; 82948; J2704; J7120

== ENCOUNTER 2023-01-07 17:22 | Emergency (ER) | payer BC, SELFPAY ==
[2023-01-07 17:30] VITALS: BP 129/72; PULSE 81; RESP 16; TEMP 36.7; O2SAT 100
[2023-01-07 17:31] VITALS: BP 129/72; PULSE 81; RESP 16; TEMP 36.7; O2SAT 100
--- NOTE | 2023-01-07 17:50 | ED.EAR ---
HPI - Ear Problem General Chief complaint: Ear Stated complaint: rt ear pain Time Seen by Provider: 01/07/23 17:43 Source: patient and RN notes reviewed Mode of arrival: ambulatory Limitations: no limitations History of Present Illness HPI Narrative: Patient presents today with a 5-6 day history of right ear pain with slightly muffled hearing. Denies drainage. She currently rates her pain 5/10 and has been taking ibuprofen and using topical lidocaine with some relief. Patient believe she has an infection in her ear canal. States she has had some itching her ear canal and has scratched it a few times with her fingernail. Related Data Home Medications Medication Instructions Recorded Confirmed prenat.vits,ronnie,[id number] 1 tablet PO DAILY 11/13/20 01/07/23 vitamin B complex 1 cap PO DAILY 11/13/20 01/07/23 metformin 1,000 mg tablet 1,000 mg PO BID 06/30/21 01/07/23 cetirizine 10 mg capsule (Zyrtec) 10 mg PO DAILY 12/03/21 01/07/23 cholecalciferol (vitamin D3) 1,250 1,250 mcg PO 2XW 12/03/21 01/07/23 mcg (50,000 unit) capsule cyanocobalamin (vitamin B-12) 500 2,500 mcg PO DAILY 12/03/21 01/07/23 mcg lozenges Allergies Allergy/AdvReac Type Severity Reaction Status Date / Time Cephalosporins Allergy Intermediate RASH Verified 01/07/23 17:30 Penicillins Allergy Mild Rash Verified 01/07/23 17:30 amoxicillin Allergy Unknown Unknown Verified 01/07/23 17:30 cefadroxil Allergy Unknown Rash Verified 01/07/23 17:30 Review of Systems Review of Systems: CONSTITUTIONAL: Denies body aches, fever, chills, or sweats. EYES: Denies visual changes, redness, or discharge. ENT: Denies rhinorrhea, congestion, sore throat. + right ear pain CARDIOVASCULAR: Denies chest pain, palpitations, or edema. RESPIRATORY: Denies cough or dyspnea. GASTROINTESTINAL: Denies abdominal pain, nausea, vomiting, or diarrhea. GENITOURINARY: Denies dysuria or hematuria. SKIN: Denies rash, itching, or wounds. MUSCULOSKELETAL: Denies back pain, joint pain, or myalgia. NEUROLOGIC: Denies headache, numbness, tingling, or weakness. PSYCH: Denies depression or anxiety. [facility] Past Medical History Medical History 39 weeks gestation of Arthritis Bronchitis delivery delivered Chronic back pain Community acquired pneumonia Finger fracture GDM, class A2 GERD (gastroesophageal reflux disease) Gestational diabetes Head ache History of blood transfusion Hypothyroid IUP (intrauterine ), incidental Nose fracture Respiratory distress Spastic colon Tachycardia Surgical History Surgical History H/O local excision of skin lesion History of section History of tonsillectomy Previous delivery, antepartum x 2 S/P laparoscopic cholecystectomy Family History Family History Father Diabetes mellitus Mother Brain tumor Mother Family history of thyroid disease Family history of migraine headaches Family history of malignant neoplasm of brain Grandparent Family history of osteoporosis Cerebrovascular accident Father Family history of diabetes mellitus in first degree relative Other Family history of heart disease in male family member before age 55 Social History Social History Social History: Primary care physician: Dr. Harrison Smoking packs per day: 0.5 Smoking cigarettes per day: 10.0 Years smoked: 15 Smoking pack-years: 7.50 Smoking status: Former smoker Tobacco type: cigarettes Second hand tobacco smoke exposure: No Smoking end date: 08/09/10 Alcohol intake: never Alcohol use details: Prior to the patient had drank alcohol in moderation in on occasion. Substance use: never Substance use type: does n
== END 2023-01-07 18:00 | disposition home or self-care (01) ==
PROVIDERS: Emergency Provider Nurse Practitioner; PCP Family Medicine
DX: H60.501 Unspecified acute noninfective otitis externa, right ear (principal); E03.9 Hypothyroidism, unspecified; Z79.84 Long term (current) use of oral hypoglycemic drugs; Z87.891 Personal history of nicotine dependence
CPT/HCPCS: 99213; G0463

== ENCOUNTER → 2023-07-10 07:19 | Outpatient (CLI) | payer BC, SELFPAY ==
--- NOTE | ~2023-07-10 | US_ITS ---
US abdomen limited INDICATION: Right upper quadrant pain. History of cholecystectomy. PROCEDURE: Realtime right upper abdominal ultrasound. COMPARISON: No prior studies for comparison. FINDINGS: The pancreas is normal without focal mass or pancreatic ductal dilation. Liver echotexture is normal without focal mass or intrahepatic biliary dilatation. There is normal directional flow i n the portal vein. Gallbladder is surgically absent. Common bile duct measures 5 mm. No sonographic Cramer's sign. IMPRESSION: 1: Normal limited abdominal ultrasound. Reviewed, dictated and finalized at location A. PRESSURE FIRER
== END ==
PROVIDERS: PCP Family Medicine; Visit Provider Internal Medicine Endocrinology, Diabetes & Metabolism
DX: R10.11 Right upper quadrant pain (principal)
CPT/HCPCS: 76705

== ENCOUNTER 2024-03-13 07:53 | Outpatient (CLI) | payer BC, SELFPAY ==
--- NOTE | ~2024-03-13 | MM_ITS ---
EXAMINATION: MM screening toya BI w yan HISTORY: Screening TECHNIQUE: Craniocaudal and mediolateral oblique 3-D tomosynthesis images were obtained and synthetic 2-D images were generated. CAD analysis was submitted and interpreted. COMPARISON: No prior mammogram is available for comparison at this institution. BREAST PARENCHYMAL COMPOSITION: Dense: The breasts are heterogeneously dense, which may obscure small masses FINDINGS: There is no evidence of suspicious mass, calcification, or architectural distortion to sugg est malignancy in either breast. There has been no suspicious interval change. IMPRESSION: 1. No mammographic evidence of malignancy. 2. Recommend routine screening mammography in one year. BI-RADS Category 1: Negative Reviewed, dictated and finalized at location B.
== END 2024-03-13 07:54 | disposition home or self-care (01) ==
PROVIDERS: PCP Family Medicine; Visit Provider Nurse Practitioner
DX: Z12.31 Encounter for screening mammogram for malignant neoplasm of breast (principal)
CPT/HCPCS: 77063; 77067

== ENCOUNTER 2025-07-04 14:09 | Outpatient (CLI) | payer BC, SELFPAY ==
--- NOTE | ~2025-07-04 | US_ITS ---
EXAMINATION: US transvaginal, 07/04/2025 14:12 OVEN OPERATOR HISTORY: Other intra-abdominal and pelvic swelling, mass and lump Comparison: None Technique: Rebolledo-scale and color Doppler images were obtained. Findings: Uterus: Uterus anteverted 7.4 x 4.1 x 4.8 cm, within the cervical area there is an echogenic focus measuring 1.9 x 2.2 cm incompletely evaluated. . Endometrium 6 mm. Right Ovary:Right ovary 2.1 x 1.9 x 1.2 cm, no adnexal mass, normal flow. Left Ovary: Left ovary 1.7 x 1.7 x 1.2 cm, no adnexal mass, normal flow. Free Fluid: None Impression: 1. Cervical lesion possible fibroid but incompletely evaluated. Contrast- enhanced MRI is recommended Reviewed, dictated and finalized at location P. OPERATOR Impression: 1. Cervical lesion possible fibroid but incompletely evaluated. Contrast-enhanc ed MRI is recommended
== END 2025-07-04 14:10 | disposition home or self-care (01) ==
LOC: MICIMG 14:10
PROVIDERS: PCP Family Medicine; Visit Provider Nurse Practitioner
DX: R19.09 Other intra-abdominal and pelvic swelling, mass and lump (principal)
CPT/HCPCS: 76830